=== PATIENT | female | born 1955 | race Caucasian/White ===

== ENCOUNTER 2020-12-02 09:48 | Emergency (ER) | payer MEDICARE, SELFPAY ==
--- NOTE | ~2020-12-02 | XR_ITS ---
EXAMINATION: XR chest 2V EXAM DATE: 12/02/2020 10:10 INDICATION: Cough, fever/ covid positive 5x days ago/non smoker. TECHNIQUE: Frontal and lateral projections of the chest obtained and reviewed. There is no prior omar dy for comparison. FINDINGS: The lungs are hyperinflated which can be seen with chronic obstructive pulmonary disease ( a clinical diagnosis of functional impairment), but is not diagnostic of it. The lungs are clear. Th ere are no pleural effusions. The cardiomediastinal silhouette is within normal limits. There is no pneumothorax suspected. The bones and soft tissues are unremarkable. IMPRESSION: 1. No acute cardiopulmonary findings. 2. Hyperinflation. Reviewed, dictated and finalized at location B.
[2020-12-02 10:01] VITALS: BP 123/74; PULSE 117; RESP 20; TEMP 37.7; O2SAT 97
--- NOTE | 2020-12-02 10:14 | ED.URI ---
HPI - URI/Sore Throat General Chief Complaint: Upper Respiratory Infection Stated Complaint: cough/fever Source: patient and RN notes reviewed Mode of arrival: ambulatory History of Present Illness HPI Narrative: This is a 65-year-old female that presented to urgent care with complaints of shortness of breath, congestion, headache, fatigue and a fever. According to patient she felt bad on Saturday get tested on Saturday and received report that she was positive for Covid on Saturday. she did take [id number] medication to treat her symptoms. Patient daughter is a nurse who took her oxygen level at home and reportedly to be between 90 to 96%. Patient family instructed her to come to urgent care to rule out pneumonia. She also noted that her temperature was between 101 and 103. The patient denies CP, palpitation, extremity numbness, lightheadedness, dizziness, constipation, diarrhea, chills, or fever. Patient also reports nausea with a decreased appetite and a cough. We will prescribe her Zofran instructed her to eat bland soft foods or have a liquid diet until she is able to tolerate her meals MD elicited complaint: fever, cough, rhinorrhea and nasal congestion Related Data Home Medications Medication Instructions Recorded Confirmed hydroxychloroquine 200 PO BID 12/02/20 leflunomide 20 mg PO DAILY 12/02/20 12/02/20 Allergies Allergy/AdvReac Type Severity Reaction Status Date / Time No Known Allergies Allergy Mild Verified 12/02/20 10:11 Review of Systems Review of Systems: A 14 organ system Review of Systems was performed and pertinent positives included in the HPI, otherwise remaining ROS is negative. [facility] Family History Family History Sibling Family history of lung cancer Family history of malignant neoplasm of brain Social History Social History Smoking status: Never smoker Second hand tobacco smoke exposure: No Alcohol intake: current Exam Narrative: GENERAL: Fatigue appearance, in no apparent distress. HEAD: normocephalic, atraumatic. EYES: PERRL. Sclera clear/white. Vision is grossly intact. EARS: External ears normal, auditory canals clear and without drainage, TMs normal without perforation. Hearing grossly intact. NOSE: External nose normal with no obvious nasal discharge, nares without redness, no rhinorrhea. THROAT: Mucous membranes moist, posterior pharynx clear. NECK: Neck supple, non-tender without lymphadenopathy, masses or thyromegaly. CARDIOVASCULAR: Regular rate and rhythm without murmurs, gallops, or rubs. RESPIRATORY: Clear to auscultation. Breath sounds equal bilaterally. No wheezes, rales, or rhonchi. GASTROINTESTINAL: Abdomen soft, non-tender, nondistended. Bowel sounds are active. No hepato-splenomegaly, or palpable masses. No guarding. SKIN: warm, intact with no suspicious lesions or rash, good texture and turgor. NEURO: awake, alert, and oriented to person, place and time. There were no obvious focal neurologic abnormalities. Steady gait EXTREMITIES: Normal range of motion. No edema. No calf tenderness. Negative Homans sign bilaterally. BACK: Nontender without deformity or crepitance. No flank tenderness. Course Course Emergency Course: Patient will be discharged with albuterol, dexamethasone Vital Signs Vital signs: Vital Signs Temperature 99.9 F H 12/02/20 10:01 Pulse Rate 117 H 12/02/20 10:01 Respiratory Rate 12/02/20 10:01 Blood Pressure 123/74 12/02/20 10:01 Pulse Oximetry 97 12/02/20 10:01 Temperature 99.9 F H 12/02/20 10:01 Pulse Rate 117 H 12/02/20 10:01 Respiratory Rate 12/02/20 10:01 Blood Pressure 123/74 12/02/20 10:01 Pulse Oximetry 97 12/02/20 10:01 Discharge Plan Discharge Clinical Impression: COVID-19 Patient Disposition: Home, Self-Care Condition: Stable Instructions: Antibiotic Form, CO
== END 2020-12-02 10:40 | disposition home or self-care (01) ==
PROVIDERS: Emergency Provider Nurse Practitioner
DX: U07.1 COVID-19 (principal)
CPT/HCPCS: 71046; 99213; G0463

== ENCOUNTER 2020-12-04 15:04 | Emergency (ER) | payer MEDICARE, SELFPAY ==
[2020-12-04] VITALS (11 sets, daily range): BP systolic 112–130; BP diastolic 62–88; PULSE 75–96; RESP 17–22; TEMP 36.6; O2SAT 94–96
--- NOTE | ~2020-12-04 | XR_ITS ---
EXAMINATION: XR chest 1V portable DATE: 12/04/2020 15:56 INDICATION: Weakness. Shortness of breath. COVID-19 positive. TECHNIQUE: A single frontal view of the chest was obtained. COMPARISON: Chest 2 views 12/02/2020 FINDINGS: There is mild scarring at the lung apices. There are interstitial opacities in the mid and lower lung zones. No pleural effusion or pneumothorax. The heart size is normal. IMPRESSION: 1. Worsened interstitial opacities in the mid and lower lung zones, consistent with COVID-19 pneumoni a versus mild pulmonary edema. Reviewed, dictated and finalized at location A. IMPRESSION: 1. Worsened interstitial opacities in the mid and lower lung zones, consistent with COVID-19 pneumonia versus mild pulmonary edema.
--- NOTE | ~2020-12-04 | CT_ITS ---
EXAMINATION: CTA chest PE protocol DATE: 12/04/2020 17:05 INDICATION: COVID-19 pneumonia. Weakness. TECHNIQUE: Computed tomography angiography (CTA) of the chest was performed with 100 mL Omnipaque-350 intravenous contrast timed to evaluate the pulmonary arteries. Coronal maximum intensity projection 3D-reconstructions were created by the technologist. Automated exposure control and iterative reconst ruction technique were employed. The dose-length product was 191.34 mGy-cm. COMPARISON: Chest single view 12/04/2020 FINDINGS: There are patchy groundglass opacities and crazy paving involving all lobes. No pleural eff usion. The heart size is normal. No pericardial effusion. There is no pulmonary embolus. There is lum bar dextroscoliosis and severe spondylosis. IMPRESSION: 1. No pulmonary embolus. 2. Diffuse lung disease, consistent with COVID-19 pneumonia. Reviewed, dictated and finalized at location A.
--- NOTE | 2020-12-04 15:42 | ECG_ITS ---
Measurements Intervals [place] Rate: 78 P: 81 FL: 142 QRS: 81 QRSD: 97 T: 79 QT: 395 QTc: 451 Interpretive Statements SINUS RHYTHM ATRIAL PREMATURE COMPLEXES POSSIBLE LEFT ATRIAL ENLARGEMENT LOW QRS VOLTAGE IN PRECORDIAL LEADS BASELINE ARTIFACT- I, II, III, AVR, AVL, AVF, V1-V6 BORDERLINE ECG Electronically Signed On 12-04-2020 20:40:32 CDT by Eddie Devi D.O.
--- NOTE | 2020-12-04 15:56 | ED.GENADULT ---
HPI - General Adult General Chief complaint: Unspecified Stated complaint: covid+, weak Time Seen by Provider: 12/04/20 15:08 Source: patient, RN notes reviewed and old records reviewed Mode of arrival: ambulatory Limitations: no limitations History of Present Illness HPI narrative: This is a 65 year old female with history of Rheumatoid Arthritis who presents for weakness and COVID diagnosis. She developed symptoms of covid 9 days ago. She reports loss of smell, poor appetite, weakness, cough and fever. She was tested for COVID on Saturday, and she was evaluated at [facility] 2 days ago. She was started on albuterol, dexamethason, tessalon perles, and zofran. She has come to ER today because she is concerned she is dehydrated. She reports she had diarrhea first 7 days but that has resolved. She denies nausea, vomiting or abdominal pain. She also denies chest pain or shortness of breath. Her main complaint is that she is really weak. Related Data Home Medications Medication Instructions Recorded Confirmed hydroxychloroquine 200 PO BID 12/02/20 leflunomide 20 mg PO DAILY 12/02/20 12/02/20 Allergies Allergy/AdvReac Type Severity Reaction Status Date / Time No Known Allergies Allergy Mild Verified 12/04/20 15:22 Review of Systems Review of Systems: All systems reviewed & are unremarkable except as noted in HPI and below PMFSH Past Medical History Medical History (Updated 12/05/20 @ 00:00 by Natalya Sharma) Rheumatoid arthritis Family History Family History Sibling Family history of lung cancer Family history of malignant neoplasm of brain Social History Social History Smoking status: Never smoker Second hand tobacco smoke exposure: No Alcohol intake: current Exam Narrative: GENERAL: Well-appearing, well-nourished, and in no acute distress. HEAD: Normocephalic, atraumatic EYES: PERRLA and EOMI, conjunctiva clear without discharge THROAT:Mucous membranes moist, Oropharynx normal without erythema, exudate, peritonsillar swelling or fluctuance NECK: Supple, without lymphadenopathy or mass RESPIRATORY: No respiratory distress, Airway patent, Respirations non-labored,bibasilar crackles heard HEART: Regular rate and rhythm. No murmur heard. Normal peripheral pulses. ABDOMEN: Soft, nontender, nondistended, normal active bowel sounds. No masses. No rebound or guarding, No organomegaly. EXTREMITIES: No edema, normal strength with full range of motion. SKIN: Warm, dry, normal color without rash NEURO: Alert and oriented x3. CN 2-12 grossly intact. No focal deficits. PSYCH: Normal mood and affect. Course Consultations Consultation #1: I discussed with patient about diagnosis of covid pneumonia. She is day 9 . I walked patient around nurses station and she denies shortness of breath with oxygen saturation 94% on room air. She already has steroid, cough medication and albuterol inhaler. She denies any other questions or concerns. Date: 12/04/20 Time: 17:58 Vital Signs Vital signs: Vital Signs Temperature 97.9 F 12/04/20 15:19 Pulse Rate 93 12/04/20 15:19 Respiratory Rate 17 12/04/20 15:19 Blood Pressure 113/65 12/04/20 15:19 Pulse Oximetry 96 12/04/20 15:19 Temperature 97.9 F 12/04/20 15:19 Pulse Rate 81 12/04/20 18:31 Respiratory Rate 18 12/04/20 18:31 Blood Pressure 130/64 12/04/20 18:31 Pulse Oximetry 95 12/04/20 18:31 Medical Decision Making Vital Signs Vital Signs: Vital Signs Temperature 97.9 F 12/04/20 15:19 Pulse Rate 93 12/04/20 15:19 Respiratory Rate 17 12/04/20 15:19 Blood Pressure 113/65 12/04/20 15:19 Pulse Oximetry 96 12/04/20 15:19 Temperature 97.9 F 12/04/20 15:19 Pulse Rate 81 12/04/20 18:31 Respiratory Rate 18 12/04/20 18:31 Blood Pressure 130/64 12/04/20 18:31
--- NOTE | 2020-12-04 15:58 | PCRCNOTE ---
HAD TO WAIT FOR NURSING TO FINISH WITH PT. AND FOR PT. TO GIVE A URINE SAMPLE BEFORE DRAWING ABG.
[2020-12-04 16:15] LABS: Basophils Percent Auto 0.2 % (0.2-1.2); Hematocrit 39.5 % (37.0-47.0); Hemoglobin 12.8 g/dL (12.0-15.0); Immature Granulocyte Absolute 0.02 K/mm3 (0.00-0.031); Immature Granulocyte Percent A 0.4 % (0-0.5); Immature Platelet Fraction Pct 8.2 % (0.9-11.2); Lymphocytes Absolute Auto 0.62 K/mm3 (0.9-3.2); Lymphocytes Percent Auto 11.9 % (18.3-44.2); Mean Corpuscular HGB Conc 32.4 g/dl (32-36); Mean Corpuscular Hemoglobin 29.7 pg (26-34); Mean Corpuscular Volume 91.6 fl (80-100); Monocytes Absolute Auto 0.4 K/mm3 (0.1-0.6); Monocytes Percent Auto 8.4 % (2.6-8.5); Neutrophils Absolute Auto 4.1 K/mm3 (1.3-6.7); Neutrophils Percent Auto 79.1 % (45.5-73.1); Platelet Count Result 100 k/mm3 (150-375); Red Blood Count 4.31 M/mm3 (4.2-5.4); Red Cell Distribution Width 12.8 % (11.5-14.5); White Blood Count 5.2 K/mm3 (4.5-10.0)
[2020-12-04 16:23] LABS: Base Excess ABG -1.3 mEq/l (+/-2.0); Carboxyhemoglobin 0.3 % THb (0-2.0); Fractional Inspired Oxygen 21 %; HCO3 ABG 22.4 mEq/l (22.0-26.0); Methemoglobin ABG 0.1 %THb (0-1.5); Oxygen Content ABG 18.1 %vol (16.0-22.0); Oxygen Saturation ABG 98.7 % (95.0-100.0); Oxyhemoglobin 97.4 % THb (90.0-100.0); PCO2 ABG 34.4 mmHg (35.0-45.0); PO2 ABG 129.7 mmHg (80.0-100.0); PO2 FiO2 Ratio Arterial Blood 6.18 %; Reduced Hemoglobin 2.2 %THb (0-5.0); Total Hemoglobin 13.1 g/dL (12.0-18.0); pH ABG 7.431 (7.350-7.450)
[2020-12-04 16:24] LABS: D Dimer 0.58 ug/mL (<0.48)
[2020-12-04 16:29] LABS: Alanine Aminotransferase 26 U/L (4-35); Albumin Level 4.1 g/dL (3.5-5.1); Alkaline Phosphatase 89 U/L (38-126); Anion Gap 7 mmol/L (8-16); Aspartate Amino Transferase 49 U/L (14-36); Bilirubin,Total 0.4 mg/dL (0.2-1.3); Blood Urea Nitrogen 15 mg/dL (7-17); CRP 2.8 mg/dL (<1.0); Calcium 8.5 mg/dL (8.4-10.2); Carbon Dioxide 25 mmol/L (22-30); Chloride 102 mmol/L (98-107); Estimated CRCL calculation 62 ml/min; Estimated Glomerular Filt Rate > 60; Glucose 147 mg/dL (65-110); Potassium 3.7 mmol/L (3.4-5.0); Sodium 134 mmol/L (137-145)
[2020-12-04 16:29] LABS: Device ROOM AIR; Site Drawn LEFT BRACHIAL
[2020-12-04 16:40] LABS: Magnesium 2.1 mg/dL (1.6-2.3); Troponin I < 0.012 ng/mL (0.000-0.034)
[2020-12-04 16:48] LABS: Add Urine Microscopic? YES; Appearance Urine Clear (Clear); Bacteria Urine Trace /hpf; Bilirubin Urine Negative (Negative); Blood Urine Negative (Negative); Color Urine Yellow (Yellow); Glucose Urine UA Negative (Negative); Ketones Urine Negative (Negative); Leukocyte Esterase Ur Negative LEU/UL (Negative); Mucus Urine Rare /lpf; Nitrate Urine Negative (Negative); Protein Urine 1+ mg/dL (Negative); RBC Urine 0-2 /hpf (0-2); Specific Grav Ur 1.014 (1.001-1.035); Squamous Epithelial Cell Urine Occasional /hpf (Few); Urobilinogen Urine Negative mg/dL (<2.0); WBC Urine 0-3 /hpf
== END 2020-12-04 18:33 | disposition home or self-care (01) ==
PROVIDERS: Emergency Provider General Practice
DX: U07.1 COVID-19 (principal); J12.82 Pneumonia due to coronavirus disease 2019; M06.9 Rheumatoid arthritis, unspecified; I49.1 Atrial premature depolarization; R94.31 Abnormal electrocardiogram [ECG] [EKG]
CPT/HCPCS: 36415; 36600; 71045; 71275; 80053; 81001; 82375; 82805; 83050; 83735; 84484; 85025; 85055; 85380; 86140; 93005; 99284; Q9967

== ENCOUNTER → 2021-02-24 10:24 | Outpatient (CLI) | payer MEDICARE, SELFPAY ==
--- NOTE | ~2021-02-24 | MM_ITS ---
EXAMINATION: MM screening debora BI w melissa HISTORY: Screening TECHNIQUE: Craniocaudal and mediolateral oblique 3-D tomosynthesis images were obtained and synthetic 2-D images were generated. CAD analysis was submitted and interpreted. COMPARISON: 04/04/2018 bilateral screening mammogram 10/10/2015 bilateral diagnostic mammography and bilateral complete breast ultrasound examination 09/21/2015 bilateral screening mammogram examinations BREAST PARENCHYMAL COMPOSITION: The breasts are heterogeneously dense, which may obscure small masses . FINDINGS: There are some indeterminate microcalcifications in the inner left breast. Diagnostic left mammogram with magnification views is recommended. Otherwise there is no evidence of suspicious mass, calcification, or architectural distortion to sugg est malignancy in either breast. There has been no other suspicious interval change. IMPRESSION: 1. Indeterminate left microcalcifications 2. Diagnostic left mammogram with magnification views is recommended BI-RADS Category 0: Incomplete: Needs additional imaging evaluation. Reviewed, dictated and finalized at location A. ASSISTANT
== END ==
PROVIDERS: PCP Family Medicine; Visit Provider Student in an Organized Health Care Education/Training Program
DX: Z12.31 Encounter for screening mammogram for malignant neoplasm of breast (principal); R92.8 Other abnormal and inconclusive findings on diagnostic imaging of breast
CPT/HCPCS: 77063; 77067

== ENCOUNTER → 2021-03-15 13:18 | Outpatient (CLI) | payer MEDICARE, SELFPAY ==
--- NOTE | ~2021-03-15 | DEXA_ITS ---
Bone Density Report Name: ANNIE BERNABE Age: 65 Sex: Female Ethnicity: White Date of : 1955 Indication: osteopenia; height loss; hysterectomy; rheumatoid arthritis; Referring Provider: Elliot, Rachid Walker Study: Bone densitometry was performed. Exam Date: March 15, 2021 Accession number: [id number] Bone Density: Region BMD T-score Z-score Classification AP Spine (L1-L4) 0.850 -1.8 0.0 Osteopenia Femoral Neck (Left) 0.794 -0.5 1.1 Normal Total Hip (Left) 0.943 0.0 1.3 Normal Femoral Neck (Right) 0.752 -0.9 0.7 Normal Total Hip (Right) 0.871 -0.6 0.7 Normal Total Hip Mean 0.907 -0.3 1.0 Normal World Health Organization criteria for BMD impression classify patients as: Normal (T-score at or above -1.0), Osteopenia (T-score between -1.0 and -2.5), or Osteoporosis (T-score at or below -2.5). 10-year Fracture Risk(1): Major Osteoporotic Fracture 10.0% Hip Fracture 0.8% Reported Risk Factors: [place] (), Neck BMD=0.752, BMI=23.7, rheumatoid arthritis (1) FRAX(R) Version 3.08. Fracture probability calculated for an untreated patient. Fracture probability may be lower if the patient has received treatment. Previous Exams: Region Exam Age BMD T-score BMD Change BMD Change Date g/cm2 vs Baseline vs Previous AP Spine(L1-L4) 03/15/2021 65 0.850 -1.8 -0.117* -0.004 11/01/2014 59 0.855 -1.7 -0.113* -0.040* 05/26/2012 56 0.895 -1.4 -0.072* -0.037* 01/23/2010 54 0.932 -1.0 -0.035* -0.035* 12/18/2006 51 0.967 -0.7 Total Hip(Left) 03/15/2021 65 0.943 0.0 0.017 0.035* 11/01/2014 59 0.908 -0.3 -0.018 -0.042* 05/26/2012 56 0.950 0.1 0.024 0.017 01/23/2010 54 0.933 -0.1 0.007 0.007 12/18/2006 51 0.926 -0.1 Total Hip(Right) 03/15/2021 65 0.871 -0.6 -0.024 0.016 11/01/2014 59 0.855 -0.7 -0.040* -0.037* 05/26/2012 56 0.892 -0.4 -0.003 0.014 01/23/2010 54 0.877 -0.5 -0.018 -0.018 12/18/2006 51 0.895 -0.4 *Denotes significance at 95% confidence level, LSC for AP Spine = 0.022 g/cm2, LSC for Total Hip = 0.027 g/cm2 Clinical Information Provided by Patient: Has rheumatoid arthritis Has used the following medications: Vitamin D Has the following medical conditions: Hysterectomy Patient maximum height was 64 [place]
== END ==
PROVIDERS: PCP Family Medicine; Visit Provider Family Medicine
DX: Z78.0 Asymptomatic menopausal state (principal); M85.88 Other specified disorders of bone density and structure, other site
CPT/HCPCS: 77080

== ENCOUNTER → 2021-03-20 08:43 | Outpatient (CLI) | payer MEDICARE, SELFPAY ==
--- NOTE | ~2021-03-20 | MM_ITS ---
EXAMINATION: MM diagnostic mammo unilat LT HISTORY: Indeterminate left breast calcifications on screening mammogram TECHNIQUE: Additional views of the left breast were performed. CAD analysis was submitted and interpr eted. COMPARISON: 02/24/2021, 04/04/2018,10/10/2015, 09/21/2015 FINDINGS: Grouped coarse heterogeneous calcifications in the middle third of the slightly inner breas t at the 9:00 location 5 cm from the nipple appears stable when compared to prior magnification views . No suspicious mass or architectural distortion are identified. IMPRESSION: 1. No mammographic evidence of malignancy. 2. Recommend routine screening mammography in one year. BI-RADS Category 2: Benign finding(s). Reviewed, dictated and finalized at location A. CE MANAGER
== END ==
PROVIDERS: Visit Provider Student in an Organized Health Care Education/Training Program
DX: R92.8 Other abnormal and inconclusive findings on diagnostic imaging of breast (principal)
CPT/HCPCS: 77065

== ENCOUNTER 2024-03-12 10:50 | Outpatient (CLI) | payer MEDICARE, SELFPAY ==
--- NOTE | ~2024-03-12 | XR_ITS ---
EXAMINATION: XR sacroiliac joints min 3V DATE: 03/12/2024 11:07 INDICATION: Sacroiliac joint pain. TECHNIQUE: 3 views of the sacroiliac joints were obtained. COMPARISON: None. FINDINGS: There is lumbar levocurvature and moderate spondylosis. No fracture. There is mild osteoart hritis of the sacroiliac joints. IMPRESSION: 1. Mild osteoarthritis of the sacroiliac joints. No evidence of inflammatory arthropathy. Reviewed, dictated and finalized at location A. CLE RETURN ASSOCIATE IMPRESSION: 1. Mild osteoarthritis of the sacroiliac joints. No evidence of inflammatory ar thropathy.
== END 2024-03-12 10:51 | disposition home or self-care (01) ==
PROVIDERS: PCP Family Medicine; Visit Provider Nurse Practitioner
DX: M53.3 Sacrococcygeal disorders, not elsewhere classified (principal)
CPT/HCPCS: 72202

== ENCOUNTER 2024-08-25 13:22 | Outpatient (CLI) | payer MEDICARE, SELFPAY ==
--- NOTE | ~2024-08-25 | DEXA_ITS ---
Bone Density Report Name: ANNIE AYON Age: 69 Sex: Female Ethnicity: White Date of : 1955 Indication: postmenopausal; screening for osteoporosis; height loss; hysterectomy; rheumatoid arthritis; Referring Provider: CHRISTINE MCKINNEY Study: Bone densitometry was performed. Exam Date: August 25, 2024 Accession number: [id number] Bone Density: Region BMD T-score Z-score Classification AP Spine(L1-L4) 0.890 -1.4 0.6 Osteopenia Femoral Neck (Left) 0.760 -0.8 0.9 Normal Total Hip (Left) 0.891 -0.4 1.0 Normal Femoral Neck (Right) 0.744 -0.9 0.8 Normal Total Hip (Right) 0.846 -0.8 0.7 Normal Total Hip Mean 0.869 -0.6 0.9 Normal World Health Organization criteria for BMD impression classify patients as: Normal (T-score at or above -1.0), Osteopenia (T-score between -1.0 and -2.5), or Osteoporosis (T-score at or below -2.5). 10-year Fracture Risk(1): Major Osteoporotic Fracture 11% Hip Fracture 1.1% Reported Risk Factors: [place] (), Neck BMD=0.744, BMI=24.9, rheumatoid arthritis (1) FRAX(R) Version 3.08. Fracture probability calculated for an untreated patient. Fracture probability may be lower if the patient has received treatment. Clinical Information Provided by Patient: Has rheumatoid arthritis Has used the following medications: Vitamin D Has the following medical conditions: Hysterectomy Patient maximum height was 64 Menopause Age: 42 Drinks caffeinated beverages Onset of menses at age 15 Number of children 2 Impression: The patient has low bone mass, based on the Total Spine T-score. The patient has an estimated ten-year risk of hip fracture of 1.1% and an estimated ten-year risk of major fracture of 11%, based on the WHO FRAX algorithm. Discussion: BONE DENSITY IS LOW AT ONE OR MORE SKELETAL SITES. This patient's lowest T-score is low at one or more skeletal sites. It meets the World Health Organization's (WHO) criteria for ?low bone mass? (T-score between -1.0 and -2.5). The patient's 10-year risk of fracture as calculated by FRAX is less than the threshold where pharmacological therapy is recommended by the National Osteoporosis Foundation (NOF). However, all treatment decisions require clinical judgment and consideration of individual patient factors, including patient preferences, comorbidities, previous drug use, risk factors not captured in the FRAX model (e.g., frailty, falls, vitamin D deficiency, increased bone turnover, interval significant decline in bone density) and possible under or overestimation of fracture risk by FRAX. The patient should follow a healthful lifestyle (good nutrition with adequate calcium and vitamin D, and appropriate weight-bearing exercise). Follow-Up: Consider repeating this study in 2 to 3 years to reassess this patient's status, or sooner if there is some new clinical indication. Reported by: GARTH on 08/25/2024 1:59:00 PM. Reviewed, dictated and finalized at location A.
--- OUTSIDE RECORDS SUMMARY | 2024-08-25 13:25 | XMS_ITS | Clinical Summary ---
Author Organization [employer] Address [address] 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
--- OUTSIDE RECORDS SUMMARY | 2024-08-25 13:25 | XMS_ITS | Data Portability ---
Author Organization [facility] Address [address] [place] [address] Assessment No assessment recorded. Plan of Treatment Reminders Order Date Submit Date Provider Last Modified By Organization Details Last Modified Time Details Appointments ANY 15 2024 10:00A M Rachid Zarate MD Not available Not available Not available Lab lipid panel, serum 2023 024 [facility], [address], [address], [place], [address], 01/31/2024 09:19:40 CBC 2023 024 [facility], [address], [place], [address], 01/31/2024 09:19:43 CMP, serum or plasma 2023 024 [facility], [address], [place], [address], 01/31/2024 09:19:42 influenza virus A + B + SARS-CoV- 2 (COVID19) Ag panel, rapid IA, upper respirato ry specimen 2022 023 [email or web address] In-Office Order, Internal Use Only DO Not Attach Compendium DO Not Attach Compendium, Do Not Delete/merge, [id number] 03/27/2023 12:57:52 Referral None recorded. Procedures IV infusion, hydration , 31-60 min (PROC) - #22 angiocath rt arm started at 1145am and hung 500 ml normal saline, finished at 1215pm, sl better, no urge to void, 500cc hung at 1215 and finished at 1250, and last 500cc hung at 1250. color better, feels better-no void. finished at 1330, pt feeling better and voided. 2022 023 [email or web address] Not available 03/28/2023 09:46:49 Surgeries None recorded. Imaging XR, chest, 2 view 2022 023 [facility], [address] [facility], [place], [address], 03/27/2023 15:08:49 Medication Orders triamcino lone acetonide 40 mg/mL suspensio n for injection 2024 025 [email or web address] [facility] [address] [place], [address], 07/06/2024 11:11:43 ceftriaxo ne 1 gram solution for injection 2023 024 [facility] [address] [place], [address], 01/28/2024 08:12:47 triamcino lone acetonide 80 mg/mL suspensio n for injection 2023 024 [facility] [address] [place], [address], 01/28/2024 08:13:07 sodium chloride 0.9 % intraveno us solution 2022 023 cheuerma Not available 03/28/2023 09:49:50 sodium chloride 0.9 % intraveno us solution 2022 023 cheuerma Not available 03/28/2023 09:49:50 sodium chloride 0.9 % intraveno us solution 2022 023 cheuerma Not available 03/28/2023 09:49:50 Medrol (Sergei) 4 mg tablets in a dose pack 2022 [facility] [address] [place], [address], 01/28/2024 08:13:03 ceftriaxo ne 1 gram solution for injection 2022 023 [facility] [address] [place], [address], 01/28/2024 08:12:47 triamcino lone acetonide 40 mg/mL suspensio n for injection 2022 023 [facility] [address] [place], [address], 01/28/2024 08:13:12 cefuroxim e axetil 250 mg tablet 2022 024 [facility] [address] [place], [address], 01/28/2024 08:12:59 albuterol sulfate HFA 90 mcg/actua tion aerosol inhaler 2022 [facility]23 [email or web address] [address] [place], [address], 03/27/2023 14:45:49 Patient TargetsNo targets recorded. Patient InstructionsNo instructions recorded. Reason for Referral None Reported. Results Created Date Observation Date Name Description Value Unit Range Abnormal Flag Note LastModifiedBy Organization Detail LastModifiedTime 03/27/2003/27/2023 influ love virus A + B + SARS- CoV-2 (COVI D19) Ag panel , rapid IA, upper respi rator y speci men Flu A negati ve Not Available In-Office Order Internal Use Only DO Not Attach Compendium DO Not Attach Compendium, Do Not Delete/merge, [id number] 03/27/2023 12:07:02 03/27/2003/27/2023 influ love virus A + B + SARS- CoV-2 (COVI D19) Ag panel , rapid IA, upper respi rator y speci men Flu B negati ve Not Available In-Office Order Internal Use Only DO Not Attach Compendium DO Not Attach Compendium, Do Not Delete/merge, [id number] 03/27/2023 12:07:02 03/27/20 23 03/27/2023 influ love virus A + B + SARS- CoV-2 (COVI D19) Ag panel , rapid IA, upper respi rator y speci men Rapid SARS CoV 2 Ag, QL IA, respiratory specimen negati ve Not Available In-Office Order Internal Use Only DO Not Attach Compendium DO Not Attach Compendium, Do Not Delete/merge, [id number] 03/27/2023 12:07:02 01/30/20 24 01/31/2024 LIPID PANEL , STAND GINNY cholesterol, total 209 mg/dL <200 high Not Available [address], [address], 01/31/2024 09:19:40 01/30/20 24 01/31/2024 LIPID PANEL , STAND GINNY HDL cholesterol 51 mg/dL > or = 50 normal Not Available [address] [address] [place], [address], 01/31/2024 09:19:40 01/30/20 24 01/31/2024 LIPID PANEL , STAND GINNY triglyceride s 116 mg/dL <150 normal Not Available [address] [place], [address], 01/31/2024 09:19:40 01/30/20 24 01/31/2024 LIPID PANEL , STAND GINNY LDL-choleste rol 136 mg/dL _(cierra c) high Refer ence range : <100 Annamaria able range <100 mg/dL for prima ry preve ntion ; <70 mg/dL for patie nts with CHD or diabe tic patie nts with > or = 2 CHD risk facto rs. LDL-C is now calcu lated using the [facility]-Hop shanique dill n, which is a valid ated novel metho d provi daniel hercules r accur acy than the Fried cristo equat ion in the estim ation of LDL-C . Rosi n SS et al. KAREN. 2013; 310(7 9): 2061- 2068 (http ://ed ucati on.Flossonic Ju jacomeAmerican Pathology Partners. com/f aq/FA Q164) Not Available [address], [address], 01/31/2024 09:19:40 01/30/2001/31/2024 LIPID PANEL , STAND GINNY chol/HDLC ratio 4.1 (calc ) <5.0 normal Not Available [address], [address], 01/31/2024 09:19:40 01/30/2001/31/2024 LIPID PANEL , STAND GINNY non HDL cholesterol 158 mg/dL _(cierra c) <130 high For patie nts with diabe mona plus 1 major ASCVD risk facto r, treat ing to a non-H DL-C goal of <100 mg/dL (LDL- C of <70 mg/dL ) is consi dered a thera semaj c optio n. Not Available [address], [address], 01/31/2024 09:19:40 01/30/20 24 01/31/2024 COMPR EHENS [place] METAB OLIC PANEL glucose 80 mg/dL 65-99 normal Fasti ng refer ence inter hilary Not Available [address], [address], 01/31/2024 09:19:42 01/30/2001/31/2024 COMPR EHENS KENT[place] METAB OLIC PANEL urea nitrogen (BUN) 14 mg/dL 7-25 normal Not Available [facility] [address], [address], 01/31/2024 09:19:42 01/30/20 24 01/31/2024 COMPR EHENS [place] METAB OLIC PANEL creatinine 0.58 mg/dL 0.50-1 .05 normal Not Available [address], [address], 01/31/2024 09:19:42 01/30/20 24 01/31/2024 COMPR EHENS [place] METAB OLIC PANEL eGFR 99 mL/mi n/1.7 3m2 > or = 60 normal Not Available [address], [address], 01/31/2024 09:19:42 01/30/20 24 01/31/2024 COMPR EHENS [place] METAB OLIC PANEL BUN/creatini ne ratio SEE NOTE: (calc ) 6-22 Not Repor duncan: BUN and Creat inine are withi n refer ence range . Not Available [address], [address], 01/31/2024 09:19:42 01/30/20 24 01/31/2024 COMPR EHENS KENTON METAB OLIC PANEL sodium 141 mmol/ L 135-14 6 normal Not Available [address], [address], 01/31/2024 09:19:42 01/30/20 24 01/31/2024 COMPR EHENS [place]ON METAB OLIC PANEL potassium 3.8 mmol/ L 3.5-5. 3 normal Not Available [address], [address], 01/31/2024 09:19:42 01/30/20 24 01/31/2024 COMPR EHENS K[place]ON METAB OLIC PANEL chloride 104 mmol/ L 98-110 normal Not Available [address], [address], 01/31/2024 09:19:42 01/30/20 24 01/31/2024 COMPR EHENS [place] METAB OLIC PANEL carbon dioxide 29 mmol/ L 20-32 normal Not Available [address], [address], 01/31/2024 09:19:42 01/30/2001/31/2024 COMPR EHENS [place]ON METAB OLIC PANEL calcium 8.8 mg/dL 8.6-10 .4 normal Not Available [address], [address], 01/31/2024 09:19:42 01/30/2001/31/2024 COMPR EHENS K[place]ON METAB OLIC PANEL protein, total 6.1 g/dL 6.1-8. 1 normal Not Available [address], [address], 01/31/2024 09:19:42 01/30/2001/31/2024 COMPR EHENS [place]ON METAB OLIC PANEL albumin 4.1 g/dL 3.6-5. 1 normal Not Available [address], [address], 01/31/2024 09:19:42 01/30/2001/31/2024 COMPR EHENS K[place]ON METAB OLIC PANEL globulin 2.0 g/dL_ (calc ) 1.9-3. 7 normal Not Available [address], [address], 01/31/2024 09:19:42 01/30/2001/31/2024 COMPR EHENS K[place]ON METAB OLIC PANEL albumin/glob ulin ratio 2.1 (calc ) 1.0-2. 5 normal Not Available [address], [address], 01/31/2024 09:19:42 01/30/20 24 01/31/2024 COMPR EHENS KENTON METAB OLIC PANEL bilirubin, total 0.6 mg/dL 0.2-1. 2 normal Not Available [address], [address], 01/31/2024 09:19:42 01/30/20 24 01/31/2024 COMPR EHENS [place] METAB OLIC PANEL alkaline phosphatase 98 U/L 37-153 normal Not Available [address], [address], 01/31/2024 09:19:42 01/30/20 24 01/31/2024 COMPR EHENS K[place] METAB OLIC PANEL AST 21 U/L 10-35 normal Not Available [address], [address], 01/31/2024 09:19:42 01/30/2001/31/2024 COMPR EHENS K[place]ON METAB OLIC PANEL ALT 17 U/L 6-29 normal Not Available [address], [address], 01/31/2024 09:19:42 01/30/2001/31/2024 CBC (H/H, RBC, INDIC ES, WBC, PLT) white blood cell count 4.4 thous and/u L 3.8-10 .8 normal Not Available [address], [address], 01/31/2024 09:19:43 01/30/2001/31/2024 CBC (H/H, RBC, INDIC ES, WBC, PLT) red blood cell count 4.08 bhavani on/uL 3.80-5 .10 normal Not Available [address], [address], 01/31/2024 09:19:43 01/30/2001/31/2024 CBC (H/H, RBC, INDIC ES, WBC, PLT) hemoglobin 12.6 g/dL 11.7-1 5.5 normal Not Available [address], [address], 01/31/2024 09:19:43 01/30/20 24 01/31/2024 CBC (H/H, RBC, INDIC ES, WBC, PLT) hematocrit 38.2 % 35.0-4 5.0 normal Not Available [address], [address], 01/31/2024 09:19:43 01/30/2001/31/2024 CBC (H/H, RBC, INDIC ES, WBC, PLT) MCV 93.6 fL 80.0-1 00.0 normal Not Available [facility] [address], [address], 01/31/2024 09:19:43 01/30/2001/31/2024 CBC (H/H, RBC, INDIC ES, WBC, PLT) MCH 30.9 pg 27.0-3 3.0 normal Not Available [facility] [address], [address], 01/31/2024 09:19:43 01/30/2001/31/2024 CBC (H/H, RBC, INDIC ES, WBC, PLT) MCHC 33.0 g/dL 32.0-3 6.0 normal For adult s, a sligh t decre ase in the calcu lated MCHC value (in the range of 30 to 32 g/dL) is most likel y not clini jerald signi ficjennie t; bill er, it shoul d be inter prete d with cauti on in corre lat n with other red cell rajesh eters and the patie nt's clini cierra condi tion. Not Available [facility] [address] [address] [place], [address], 01/31/2024 09:19:43 01/30/2001/31/2024 CBC (H/H, RBC, INDIC ES, WBC, PLT) RDW 12.3 % 11.0-1 5.0 normal Not Available [facility] [address] [place], [address], 01/31/2024 09:19:43 01/30/2001/31/2024 CBC (H/H, RBC, INDIC ES, WBC, PLT) platelet count 171 thous and/u L 140-40 0 normal Not Available [address], [address], 01/31/2024 09:19:43 01/30/20 24 01/31/2024 CBC (H/H, RBC, INDIC ES, WBC, PLT) MPV 10.6 fL 7.5-12 .5 normal Not Available [facility] [address] [place], [address], 01/31/2024 09:19:43 02/29/20 23 nmens 1d [facility] [address] [place] [address] Myocar dial Perfus ion Imagin g Pat.Na me: HAILEE BEARD Pat.ID : [id number] [facility] 2022 Refer. MD: Elliot Exam Time: 1:22:0 0 PM Study Type:S EB NC HT MUSCLE IMAGE SPECT MULTI Height : 63 in Weight : 142 lb BSA: 1.67 m2 Age: [birth year],67 Y Sex: F Sonogr phr: Clarence Isbell ARRTBell Pat. Stat.: Outpat ient Reason for Study: Chest heavin ess, Shortn ess of breath , Abnorm al EKG, Edema, Fatigu e Histor y / Clinic al:Hyp ertens ion, Family histor y CAD Proced ures: Nuclea r Stress Test with Exerci se Race: W Surger y: Echoca rdiogr am ++++++ ++++++ ++++++ ++++++ ++++++ ++++++ SUMMAR Y: ++++++ ++++++ ++++++ ++++++ ++++++ ++++++ Stress conclu roberto: 1. Clinic ally negati ve. 2. Electr ocardi ograph ically negati ve treadm ill test for ischem ia. 3. Adequa te exerci se capaci ty. 4. Ma Treadm ill Score is 6, which indica mona low risk. 5. Blood pressu re respon se was normal . 6. Scinti graphi c images to follow . Perfus ion conclu roberto: 1. Excell ent study qualit y. No motion correc tion was applie d to images . No attenu ation is noted. Prone imagin g was perfor med. 2. Normal myocar dial perfus ion SPECT imagin g. 3. Normal wall motion with an ejecti on fracti on of 76%. 4. Stress test with myocar dial perfus ion imagin g shows overal l low risk for a cardia c event. ++++++ ++++++ ++++++ ++++++ ++++++ ++++++ FINDIN GS: ++++++ ++++++ ++++++ ++++++ ++++++ ++++++ Protoc ol: The images were proces sed using the standa rd SPECT techni que. A gated study was perfor med on the stress images . Impres roberto: SPECT images demons trate normal perfus ion of normal intens ity. Heart Size: The left ventri philippe is normal . LV Wall Motion : The LVEF is calcul ated to be 76%. Gated SPECT images reveal normal wall motion . Transi ent Ischem ic Dilata tion: The TID is 0.94. There is no eviden ce of Transi ent Ischem ic Dilata tion. ++++++ ++++++ ++++++ ++++++ ++++++ ++++++ STRESS : ++++++ ++++++ ++++++ ++++++ ++++++ ++++++ Baseli ne Vital Signs: ECG: Normal sinus rhythm HR: 87 bmp Rest BP: 175/91 Treadm ill Test Protoc ol: Raymon Stress Test Result s: Max HR: 163 bmp Target HR: 153 bmp % Target : 107 % Max BP: 191/87 Max RPP: 80045 O2 sat: 98 % Sympto ms and Compli cation s: Termin ated: Attain ment of adequa te heart rate, Protoc ol comple duncan, Shortn ess of breath Sympto ms: Shortn ess of breath Stress ECG Interp : Sinus tachyc ardia 2022 04:31 PM Sukhdev verma M.D. [email or web address] [facility] [address] [facility], [place], [address], 02/28/2023 17:45:30 03/27/20 23 xr chest Pa+la t [facility] [address] [place] [address] Examin ation: Chest 2 View Histor y: Cough DATE/T EUGENIA: 2022 1:42 PM Compar ashley: None Techni que: PA and latera l views were obtain ed. Findin gs: Heart size, medias tinal contou rs and pulmon massiel vascul ature are within normal limits . No pulmon massiel consol idatio n, pleura l effusi on or pneumo thorax . No acute osseou s abnorm ality. Mild upper thorac ic scolio sis. Impres roberto: No acute findin gs. Referr ed By: Flor onical ly Signed By: Alessio Cabrales MD on 2022 2:05 PM Interp reted By: Alessio Cabrales MD, 2022 2:04 PM [email or web address] [facility] [address] [facility], [place], [address], 03/27/2023 15:13:36 03/27/20 23 03/27/2023 XR, chest , 2 view No observ ation record ed. [email or web address] [facility] [address] [facility], [place], [address], 03/27/2023 15:13:37 Result Notes None recorded. Problems Name Problem SNOMED Code Status Onset Date Resolution Date Notes Provider Name and Address Organization Details Recorded Time Bunion 655427918 Active 2022 Rachid Zarate MD Attn: Martha bayron,[address] [facility], [place], [address], [place] - [facility] 3 17:27:28 Pain in both feet 2401084091659 9102 Active 2022 Rachid Zarate MD Attn: Martha bayron,[address] [facility], [place], [address], [place] [facility] 3 17:27:28 Rheumatoid arthritis 34489885 Active 2022 Rachid Zarate MD Attn: Martha bayron,[address] [facility], [place], [address], [place] [facility] 3 17:27:30 Dyspnea on exertion 02026998 Active 2022 Rachid Zarate MD Attn: Martha bayron,[address] [facility], [place], [address], [place] [facility] 3 17:27:31 Hypertrigly ceridemia 004534283 Active 2022 Rachid Zarate MD Attn: Birdiecorwin verma,[address] [facility], [place], [address], [place] [facility] 3 12:12:12 Benign essential hypertensio n 1312045 Active 2022 Rachid Zarate MD Attn: Martha bayron,[address] [facility], [place], [address], [place] [facility] 3 12:12:35 Pain of sacroiliac joint 117270095 Active 2024 Rachid Zarate MD Attn: Birdiecorwin verma,[address] [facility], [place], [address], [place] [facility] 5 10:53:26 Problem Notes None recorded. Procedures Surgical History Date Name Laterality Status Provider Name and Address Organization Details Recorded Time hysterectomy completed Renetta charlton [place] - [place] 10/30/2022 15:53:49 Imaging Results None recorded. Procedure Notes None recorded. Medical Equipment None Reported. Allergies No known drug allergies Medications Name Sig Start Date Stop Date Status Note LastModified by Organization Details LastModified Time cefuroxime axetil 250 mg tablet TAKE 1 TABLET BY MOUTH EVERY 12 HOURS FOR 10 DAYS 01/27 completed Not Available Not Available Not Available azithromyci n 250 mg tablet TAKE 2 TABLETS (500 MG) BY ORAL ROUTE ONCE DAILY FOR 1 DAY THEN 1 TABLET (250 MG) BY ORAL ROUTE ONCE DAILY FOR 4 DAYS active Not Available Not Available No t Available meloxicam 15 mg tablet TAKE 1 TABLET BY MOUTH ONCE DAILY NEEDED WITH FOOD FOR PAIN 10/30 completed Not Available Not Available Not Available prednisone 5 mg tablet active Not Available Not Available Not Available amlodipine 5 mg tablet TAKE 1 TABLET BY MOUTH ONCE DAILY active Not Available Not Available No t Available leflunomide 20 mg tablet TAKE 1 TABLET BY MOUTH ONCE DAILY FOR 90 DAYS active Not Available Not Available No t Available ketorolac 0.5 % eye drops INSTILL 1 DROP INTO LEFT EYE TWICE DAILY DIRECTED 10/30 completed Not Available Not Available Not Available ceftriaxone 1 gram solution for injection Take 1 g by injection route for 1 day. 01/27 completed Not Available Not Available Not Available prednisolon e acetate 1 % eye drops,suspe nsion INSTILL 1 DROP THREE TIMES DAILY INTO THE LEFT EYE, TAPER BY ONE DROP A WEEK THEN STOP active Not Available Not Available No t Available triamcinolo ne acetonide 40 mg/mL suspension for injection Take 60 mg by injection route for 1 day. 2024 active Not Available Not Available Not Avai lable fluorometho lone 0.1 % eye drops,suspe nsion SHAKE LIQUID AND INSTILL 1 DROP IN BOTH EYES THREE TIMES DAILY 10/30 completed Not Available Not Available Not Available sodium chloride 0.9 % intravenous solution Inject 500 mL by intraveno us route for 1 day. 2022 active Not Available Not Available Not Avai lable hydroxychlo roquine 200 mg tablet TAKE 1 TABLET BY MOUTH TWICE DAILY active Not Available Not Available No t Available methylpredn isolone 4 mg tablets in a dose pack Take 1 dose pk by oral route. active Not Available Not Available No t Available albuterol sulfate HFA 90 mcg/actuati on aerosol inhaler INHALE 2 PUFFS BY MOUTH EVERY 4 TO 6 HOURS NEEDED active Not Available Not Available No t Available atropine 1 % eye drops INSTILL 1 DROP INTO LEFT EYE ONCE DAILY active Not Available Not Available No t Available moxifloxaci n 0.5 % eye drops INSTILL 1 DROP INTO LEFT EYE 4 TIMES DAILY active Not Available Not Available No t Available ketorolac 0.4 % eye drops INSTILL 1 DROP INTO LEFT EYE THREE TIMES DAILY FOR 4 WEEKS 10/30 completed Not Available Not Available Not Available Fish Oil 1,000 mg (120 mg-180 mg) capsule Take 2 capsules every day by oral route in the morning. active Not Available Not Available No t Available triamcinolo ne acetonide 80 mg/mL suspension for injection Take 80 mg by injection route for 1 day. 01/27 completed Not Available Not Available Not Available Vitals Date Recorded Body height Body temperature Body mass index (BMI) Body weight Oxygen saturation Oxygen saturation in Arterial blood by Pulse oximetry Heart rate Systolic And Diastolic Provider Name and Address Organization Details Last Updated DateTime 4 162.56 cm 97.7 [degF] 23.5 kg/m2 80523.1 5 g 95 % 95 % 70 /min 120/82 mm[Hg] Tammie Guzman MA [facility] 4 11:55:57 Date Recorded Body height Body mass index (BMI) Body weight Oxygen saturation Oxygen saturation in Arterial blood by Pulse oximetry Heart rate Systolic And Diastolic Provider Name and Address Organization Details Last Updated DateTime 5 162.56 cm 24.8 kg/m2 86305.7 5 g 95 % 95 % 74 /min 118/70 mm[Hg] Tammie Guzman MA [facility] 5 10:14:19 Date Recorded Body height Body mass index (BMI) Body weight Oxygen saturation Oxygen saturation in Arterial blood by Pulse oximetry Heart rate Systolic And Diastolic Provider Name and Address Organization Details Last Updated DateTime 4 162.56 cm 24.7 kg/m2 26148.6 5 g 95 % 95 % 81 /min 108/68 mm[Hg] Renetta West MA [facility] 4 12:04:11 Date Recorded Body height Body mass index (BMI) Body weight Oxygen saturation Oxygen saturation in Arterial blood by Pulse oximetry Heart rate Systolic And Diastolic Provider Name and Address Organization Details Last Updated DateTime 4 162.56 cm 24.7 kg/m2 18878.6 5 g 98 % 98 % 82 /min 120/72 mm[Hg] Katia Guzman MA [facility] 4 11:37:52 Date Recorded Body height Body mass index (BMI) Body weight Oxygen saturation Oxygen saturation in Arterial blood by Pulse oximetry Heart rate Systolic And Diastolic Provider Name and Address Organization Details Last Updated DateTime 3 162.56 cm 23.5 kg/m2 75043.1 5 g 96 % 96 % 94 /min 116/72 mm[Hg] Tammie Guzman MA [facility] 3 11:18:40 Social History Question Answer Notes LastModified by [employer] Details LastModified Time Tobacco Smoking Status Never Smoker Renetta West MA [facility], [facility] 10/30/2022 15:54:33 What Was The Date Of Your Most Recent Tobacco Screening? 07/06/2024 [email or web address] Information not available 07/06/2024 Has Tobacco Cessation Counseling Been Provided? No Information not available 10/30/2022 Sex: Female Functional Status Question Answer Note LastModified by [employer] Details LastModified Time Do you use any illicit or recreational drugs? No Information not available 10/30/2022 Do you or have you ever used any other forms of tobacco or nicotine? No Information not available 10/30/2022 What is your level of alcohol consumption? Occasional Information not available 10/30/2022 Mental Status None recorded. Family History Relationship Description Onset Age of this Age Resolved Age Notes LastModified by Organization Details LastModified Time Mother Heart disease [email or web address] Not available 2022 15:54:47 Mother Hypertensive disorder cheuerma Not available 2022 15:55:03 Mother Coronary arterioscler osis [email or web address] Not available 2023 11:51:46 Brother Malignant neoplasm of lung cheuerma Not available 2022 15:56:02 Medical History Condition Response Coronary Artery Disease N Other N Atrial Fibrillation N High Blood Pressure Y Depression N COPD N Blood Clots N Anxiety Disorder N Muscle, Joint, or Bone Problems Y Acid Reflux (GERD) N Cancer N Stroke N ADHD N High Cholesterol N Liver Disease N Schizophrenia N Headaches N Thyroid Problems N Kidney or Bladder Problems N GI Problems N Eating Disorder N Skin Problems N Anemia N Heart Attack ([place]) N Diabetes N Seizures/Epilepsy N Asthma N Allergies N Substance Abuse N Hepatitis N Heart Failure N Osteoporosis N Gynecological HistoryNo gynecological history recorded. Obstetrics History GPAL:G 0 P 0 0 0 0 Immunizations Vaccine Type Date Status Note Provider Nam e and Address Organization Details Recorded Time Tdap 12/17/2014 completed Renetta West MA [facility], [place] - [place] 07/29/2023 12:02:54 Past Encounters Encounter ID Performer Location Encounter Start Date Encounter Closed Date Diagnosis/Indication Diagnosis SNOMED-CT Code Diagnosis ICD10 Code Diagnosis Note [id number] Rachid Zarate MD [facility] [address] [facility] [address] [place] [address] 10/30/2022 15:48:18 11/06/2022 12:05:00 Dyspnea on exertion 81750329 R06.09 condtino chroinc and getting worse [facility] Rheumatoid arthritis 698 49526 M06.9 conditoin chroinc and under control follow with dr hathaway Pain in both feet 427057 4216 5723176 M79.671 conditon chroinc and at goal contineu the veronicarosyn Shady [id number] M21.61 9 conditon chroinc and not at goal cotinue hte leflunomid e. Impacted c erumen in left ear [id number] 267049 H61.22 conditoin acute clean left ear. the left external auditory canal is irrigated iwth nomral saline nad currette is used to remove the cerumen bolus intact [id number] Rachid Zarate MD [facility] [address] [facility] [address] [place] [address] 01/28/2023 11:47:17 01/29/2023 11:57:33 Cholesterol screening [id number] Z13.220 order lipid panel send to dr matt Caruso [id number] M21.61 9 conditon chroinc and not at goal cotinue hte leflunomid e. Dyspnea on exertion 6084 5006 R06.09 condtino chroinc and has been evaluated continue with dr gutierrez. Pain in both feet 451982 2992 4846371 M79.671 conditon chroinc and at goal contineu the naprosyn Rheumatoid arthritis 698 14216 M06.9 conditoin chroinc and under control follow with dr hathaway [id number] Rachid Zarate MD [facility] [address] [facility] [address] [place] [address] 03/27/2023 11:01:19 03/28/2023 11:55:42 Acute bronchitis [id number] J20.9 conditoin acute kenalog 80 mg, rocephin, ceftin, medrol, albuterol inhaler, order cxr at [facility] Viral syndrome [id number] B34.9 continue the fluid at home Mild dehydration 2223752 119 108 E86.0 conditon acute 1 liter of normal saline Bunion 660051076 M21.61 9 conditon chroinc and not at goal cotinue hte leflunomid e. Pain in both feet 518651 2583 8373263 M79.671 conditon chroinc and [facility] Rheumatoid arthritis 698 61381 M06.9 conditoin chroinc and under control follow with dr hathaway Hypertriglyceridemia 302 472257 E78.1 conditoin chronic and at goal continue the fish oil Benign ess ential hypertension 2932688 I10 conditoin chroinc and at goal continue the norvasc [id number] Rachid Zarate MD [facility] [address] [facility] [address] [place] [address] 04/03/2023 11:18:55 04/04/2023 14:28:19 Acute bronchitis [id number] J20.9 conditoin acute kenalog 80 mg, rocephin, Acute sinusitis 94851334 J01.90 condition acute rocephin, kenalog 80 mg Benign ess ential hypertension 2056802 I10 conditoin chroinc and at goal continue the norvasc Hypertriglyceridemia 302 345600 E78.1 conditoin chronic and at goal continue the fish oil Rheumatoid arthritis 698 43885 M06.9 conditoin chroinc and under control follow with dr mag Caruso [id number] M21.61 9 conditon chroinc and not at goal cotinue hte leflunomid e. [id number] Rachid Zarate MD [facility] [address] [facility] [address] [place] [address] 07/29/2023 11:31:09 07/30/2023 11:50:12 Benign essential hypertension 4546640 I10 conditoin chroinc and at goal continue the norvasc my rx Hypertriglyceridemia 302 004112 E78.1 conditoin chronic and at goal continue the fish oil my rx Rheumatoid arthritis 698 46309 M06.9 conditoin chroinc and under control follow with dr mag Caruso [id number] M21.61 9 conditon chroinc and not at goal cotinue hte leflunomid e. Dyspnea on exertion 6084 5006 R06.09 condtino chroinc and has been evaluated continue with dr gutierrez. [id number] Rachid Zarate MD [facility] [place] [address] [facility] [address] [place] [address] 01/28/2024 11:20:26 01/29/2024 10:34:47 Pain in right sacroiliac joint [id number] 6293196 M53.3 conditon acute start hte biofreese Benign ess ential hypertension 1573510 I10 conditoin chroinc and at goal continue the norvasc my rx order cbc, cmp Hypertriglyceridemia 302 471523 E78.1 conditoin chronic and at goal continue the fish oil my rx order lipid panel Shady [id number] M21.61 9 conditon chroinc and not at goal cotinue hte leflunomid e. Rheumatoid arthritis 698 20838 M06.9 conditoin chroinc and under control follow with dr hathaway [id number] Rachid Zarate MD [facility] [place] [address] [facility] [address] [place] [address] 07/06/2024 10:03:26 07/07/2024 13:28:23 Pain of sacroiliac joint 072813473 M53.3 conditno acute injection right si joint. hte right si joint is prepped and draped in a sterile ashion 1.5 cc of kenalog is mixed with 1.5 cc of lidocaine and the right si joint is injected from a posterior approach. Benign ess ential hypertension 0302792 I10 conditoin chroinc and at goal continue the norvasc my rx Hypertriglyceridemia 302 703516 E78.1 conditoin chronic and at goal continue the fish oil my rx Hypercholesterolemia 136 50183 E78.00 condition acute start low fat diet. Rheumatoid arthritis 698 37968 M06.9 conditoin chroinc and under control follow with dr hathaway Pain in both feet 636692 6304 1262383 M79.671 conditon chroinc and at goal [facility] Concerns Section Related Observation LastModified by Organization Detai ls LastModified Time None Recorded Concern Status LastModified by Organization Details LastModified Time None Recorded Advance Directives Directive None Recorded Payers Encounter Date Sequence Insurance Name Policy Number Policy Rivero Covered Member ID Rivero Member ID Guarantor Name 03/27/2023 1 [employer] (MEDICARE REPLACEMENT/ ADVANTAGE - PPO) [id number] Hailee Quiroz Rani [id number] Hailee Rani 04/03/2023 1 [employer] (MEDICARE REPLACEMENT/ ADVANTAGE - PPO) [id number] Hailee Quiroz Rani [id number] Hailee Rani 07/29/2023 1 [employer] (MEDICARE REPLACEMENT/ ADVANTAGE - PPO) [id number] Hailee Quiroz Rani [id number] Hailee Saravia 01/28/2024 1 [employer] (MEDICARE REPLACEMENT/ ADVANTAGE - PPO) [id number] Hailee Quiroz Rani [id number] Hailee Rani 07/06/2024 1 [employer] (MEDICARE REPLACEMENT/ ADVANTAGE - PPO) [id number] Hailee Quiroz Rani [id number] Hailee Saravia Notes Date Note Type Note Provider Name and Address Organization Details Recorded Time 03/27/2023 text/html states that she has been having cough and wheeze over the past week and she is getting worse. the ra is under control adn the bunions are painful. states taht she has been running a fever nad has body aches. dark urine Lexi Lasica, RN null, [place] [facility] 04/04/2023 16:16:45 04/03/2023 text/html states that she has a sinus infection the htn and the triglycerides are under conrol the ra is under control and the bunions are under control Rachid Zarate MD Attn: [address] [place], [address], [place] [facility] 04/03/2023 18:58:07 07/29/2023 text/html states that she is doing good an the htn is under control the triglycerides are under control nad the ra is stable the bunion is under control taking her meds as driected. colo is utd. Rachid Zarate MD Attn: [address] [place], [place], [address] [place] [address], [place] [facility] 07/29/2023 18:15:14 01/28/2024 text/html states that she is doing good and the htn si under contorl the ra is under control the triglycerides are under control hte bunion is still painful right si joint pain is worse Rachid Zarate MD Attn: [address] [place], [address], [place] [facility] 01/28/2024 13:46:41 07/06/2024 text/html staets that the right si joint is getting worse. hte htn is under control and hte triglyderides are under contrl hte ra is stable taking her meds as directed. colo is utd dr loan Zarate MD Attn: [address] [place], [address], [place] [facility] 07/06/2024 13:10:21 OBGyn Episode No OBEpisode recorded.
--- OUTSIDE RECORDS SUMMARY | 2024-08-25 13:25 | XMS_ITS | Referral Summary ---
Author Organization [facility] [address] Address [address] [place] [address] Phone Care Team Providers Care Automatic Profile Sander Operator Name Role Phone Sandra Eric MD Unavailable Rachid Zarate MD Primary Care Provider [phone] Allergies No known active allergies Medications cholecalciferol (VITAMIN D-3) 2000 unit capsule Take 2,000 Units by mouth daily Active vitamin B complex with C-folic acid (NEPHROCAP) 1 mg capsuleIndicati ons:Vitamin Deficiency Prevention Take 1 capsule by mouth daily Active aspirin 325 mg tablet Take 325 mg by mouth daily Active leflunomide (ARAVA) 20 mg tablet Take 1 tablet by mouth daily 11/21/2020 Active hydrOXYchloroQU INE (PLAQUENIL) 200 mg tablet Take 200 mg by mouth daily Active Active Problems Problem Noted Date Diagnosed Date Acute respiratory failure with hypoxia COVID-19 12/06/2020 Encounter for long-term (current) use of medicat ions 09/04/2016 Assessment & Plan (12/12/2017 12:23 PM CDT): Will continue to monitor w/ routine labs Assessment & Plan (09/10/2017 11:04 AM CDT): Will continue to monitor w/ routine labs Assessment & Plan (06/10/2017 10:39 AM CDT): Labs in 3 mo. F/u 3 mos, sooner if needed. Assessment & Plan (03/12/2017 11:26 AM PROPERTY MANAGEMENT COORDINATOR): Labs today. F/u 3 mos, sooner if needed. Assessment & Plan (12/12/2016 10:12 AM CDT): Labs today. F/u 3 mos, sooner if needed. Assessment & Plan (09/04/2016 2:38 PM CDT): Labs and vectra test today. F/u 3 mos, sooner if needed. Rheumatoid arthritis involvi ng both hands with negative rheumatoid factor 01/19/2015 Overview (07/06/2016): Rheumatoid arthritis involving both hands with negative rheumatoid factor Assessment & Plan (12/12/2017 12:23 PM CDT): Patient disease activity is low. Currently on HCQ and arava 10 mg/d. Reports minimal joint pain and AM stiffness. Lesions behind ears concerning for psoriasis. I suspect she is more of a seronegative spa vs. Ra. Especially given her joint involvement. Patient is to continue current regimen. Can consider increasing her arava or adding otezla in the future if necessary. Will check routine labs at next office visit. She recently had labs drawn at outside lab. We will request these results. I suspect some of her labs may be abnormal due to the recent URI she had Follow up in 3 mo, sooner if needed Assessment & Plan (09/10/2017 11:04 AM CDT): Patient disease activity is moderate on hcq and arava 10 mg. She reports 0/10 joint pain and minimal morning stiffness. T3s4 on exam. Recent ESR and CRP WNL. Vectra in 2017 was 37. Xrays in 03/2014 showed erosive changes more consistent w/ OA. Patient is to continue current regimen. Discussed repeating xrays. She reports that her insurance requires her to pay out of pocket for testing. Will hold off on this for now. Will check routine labs prior to next office visit. Recently had labs which were WNL. Will give her samples of pennsaid and send in rx. She reports this helps her joint pain. Follow up in 3 mo, sooner if needed Assessment & Plan (06/10/2017 10:59 AM CDT): Patient disease activity is low on hcq. U/s in 01/2017 showed mild disease and vectra score was 37 in August 2016. Ideally, would like her vectra to be below 35. Patient is to continue current regimen. Recently got blood work and was all WNL. Will check routine labs in 3 mo before her next appointment. Consider rechecking hand/wrist u/s and vectra sometime in the summer Follow up in 3 mo, sooner if needed Pt seen w/ Sara Dunlap PA-C Assessment & Plan (03/12/2017 11:40 AM PROPERTY MANAGEMENT COORDINATOR): Low disease activity with hcq daily and arava 10mg daily. Higher doses of arava caused loose stools and hair thinning. Labs today. Can hold arava for now if she wants to try to hold a medicine. Pt seen with Dr. Eric. F/u 3 mos, sooner if needed. Assessment & Plan (12/12/2016 10:26 AM CDT): Low disease activity with hcq daily and arava 10mg daily. Higher doses of arava caused loose stools and hair thinning. Labs today. U/s last month shows mild disease and vectra score is 37. Con't with current regimen. F/u 3 mos, sooner if needed. Assessment & Plan (09/04/2016 2:37 PM CDT): Low disease activity with hcq daily and arava 20mg daily. Labs today with vectra test today. Last vectra test was elevated but previous test was normal. CA screenings utd. Possible elevated vectra test could be due to cold a few days before last test. Has not been sick in the last few months, so will recheck today. U/s last month shows mild disease. Con't with current regimen. F/u 3 mos, sooner if needed. Drug indicated 04/14/2013 Overview (07/06/2016): LONG-TERM USE MEDS NEC Disorder of joint 07/02/2011 Overview (07/06/2016): ARTHROPATHY NOS-UNSPEC Osteoarthritis 11/22/2010 Overview (07/06/2016): OA Immunizations Immunization Administration Dates Next Due Tdap 12/17/2014 Social History Tobacco Use Types Packs/Day Years Used Date Smoking Tobacco: Never Smokeless Tobacco: Never Alcohol Use Standard Drinks/Week Comments Yes 0 (1 standard drink = 0.6 oz pur e alcohol) AUDIT-C Answer Date Recorded Q1: How often do you have a drink containing alc ohol? 2-4 times a month 01/06/2021 Q2: How many drinks containi ng alcohol do you have on a typical day when you are drinking? 1 or 2 01/06/2021 Q3: How often do you have si x or more drinks on one occasion? Never 01/06/2021 PHQ-2 Answer Date Recorded PHQ-2 Total Score (If total score is 3 or more points, staff should administer the PHQ-9) 0 01/06/2021 Comments No Sex and Gender Information Value Date Recorded Sex Assigned at Not on file Legal Sex Female 12:02 PM PROPERTY MANAGEMENT COORDINATOR Gender Identity Female 01/09/2021 7:43 AM CDT Sexual Orientation Not on file Last Filed Vital Signs Vital Sign Reading Time Taken Comments Blood Pressure 136/80 07/07/2021 10:01 AM CDT Pulse 95 07/07/2021 10:01 AM CDT Temperature 36.7 C (98 F) 07/07/2021 10:01 AM CDT Respiratory Rate 16 07/07/2021 10:01 AM CDT Oxygen Saturation 97% 07/07/2021 10:01 AM CDT Inhaled Oxygen Concentration - - Weight 63.5 kg (140 lb) 07/07/2021 10:01 AM CDT Height 160 cm (5' 3) 07/07/2021 10:01 AM CDT Body Mass Index 24.8 07/07/2021 10:01 AM CDT Plan of Treatment Not on file Insurance COMMERCIAL GENERIC [facility] Advance Directives For more information, please contact: [phone] * Full Code (Latest Code Status on File) Date Activated Date Inactivated Comments 12/06/2020 2:05 PM 12/15/2020 7:11 PM Care Teams Automatic Profile Sander Operator Relationship Specialty [place] [address] [address] PCP - General Family Medicine 12/22/20 [place] [address] [address] Rheumatology 12/13/16
--- OUTSIDE RECORDS SUMMARY | 2024-08-25 13:25 | XMS_ITS | Clinical Summary ---
Author Organization [facility] [address] Address [address] [place] [address] Phone Care Team Providers Care Casket Assembler Name Role Phone Sandra Eric MD Unavailable Rachid Zarate MD Primary Care Provider [phone] Allergies No known active allergies Medications cholecalciferol [...] needed. Assessment & Plan (03/12/2017 11:26 AM ENGINEERING EXECUTIVE): Labs today. F/u 3 mos, sooner if [...] PA-C Assessment & Plan (03/12/2017 11:40 AM ENGINEERING EXECUTIVE): Low disease activity with hcq daily and [...] Immunization Administration Dates Next Due Tdap 12/17/2014 Surgical History Surgery Date Site/Laterality Comments PARTIAL HYSTERECTOMY PARTIAL HYSTERECTOMY Medical History Medical History Date Comments Arthritis Family History Medical History Relation Name Comments No Known Problems Daughter Heart disease Mother Heart disease; Cancer Other Family history of Cancer, unknown; Asthma Sister No Known Problems Son Relation Name Status Comments Brother Daughter Alive Father Mother Other Sister Alive Son Alive Social History Tobacco Use Types Packs/Day Years [...] on file Legal Sex Female 12:02 PM ENGINEERING EXECUTIVE Gender Identity Female 01/09/2021 7:43 AM CDT Sexual Orientation Not on file Obstetrics History Last Filed Vital Signs Vital Sign Reading [...] Treatment Not on file Insurance COMMERCIAL GENERIC AETNA MEDICARE AETNA [facility] AETNA MEDICARE Advance Directives For more information, please contact: [phone] * Full Code (Latest Code Status on File) Date Activated Date Inactivated Comments 12/06/2020 2:05 PM 12/15/2020 7:11 PM Care Teams Casket Assembler Relationship Specialty [place] [id number] [facility] [address] [place] [address] PCP - General Family Medicine 12/22/20 [place] [address] [facility] [address] [place] [address] Rheumatology 12/13/16
--- OUTSIDE RECORDS SUMMARY | 2024-08-25 13:25 | XMS_ITS | Clinical Summary ---
Author Organization [facility] Address [address] [place] [address] Care Team Providers Care Store Standards Associate Name Role Phone Bruce Rosas MD Primary Care Provider [phone] Source Comments [facility],non-owned Affiliates and Associated Physician Practices is amultiple site organization consisting of ambulatory clinics and hospital sitesin [place], [place], [place] and [place]. This disclosure is being madepursuant to the Care Everywhere program and may not contain all information available regarding this patient. Last updated 17.[facility] [employer] Social History Tobacco Use Types Packs/Day Years Used Date Smoking Tobacco: Never Assessed Comments Unknown Sex and Gender Information Value Date Recorded Sex Assigned at Not on file Legal Sex Female 11:42 AM DESPATCH CLERK Gender Identity Not on file Sexual Orientation Not on file Plan of Treatment Health Maintenance Due Date Last Done Comments BONE DENSITY TESTING 1955 COLOGUARD (AGES 45-75) - COL ON CA SCREENING 1955 COLON MONITORING 1955 COLONOSCOPY - COLON CA SCREENING 1955 CT COLONOGRAPHY - COLON CA SCREENING 1955 Colorectal Cancer Screening 1955 FIT - COLON CA SCREENING 1955 FLEX SIG - COLON CA SCREENING 1955 LIPID TESTING 1955 MAMMOGRAM 1955 HEPATITIS C SCREENING 07/11/1973 DTAP/TDAP/TD VACCINES (1 - Tdap) 07/15/1974 PNEUMOCOCCAL VACCINE 50+ (1 of 1 - PCV) 07/15/2005 ZOSTER VACCINE (1 of 2) 07/15/2005 COVID-19 VACCINE ( - 2023-2 5 season) 2023 DEPRESSION SCREENING 04/01/2024 INFLUENZA VACCINE (Season Ended) 2024 Respiratory Syncytial Virus (RSV) Vaccine Pt: or over 60 yrs (1 - 1-dose 75+ series) 07/15/2030 HEPATITIS B VACCINE Aged Out No longe r eligible based on patient's age to complete this topic HIB VACCINE Aged Out No longer eligi ble based on patient's age to complete this topic HPV VACCINE Aged Out No longer eligi ble based on patient's age to complete this topic MENINGOCOCCAL (Group B) VACC INE SHARED DECISION-MAKING Aged Out No longer eligibl e based on patient's age to complete this topic MENINGOCOCCAL GROUPS A/C/Y/W VACCINE Aged Out No longer eligible b ased on patient's age to complete this topic Insurance [facility] Address: [facility] [id number] [place] [address] Care Teams Store Standards Associate Relationship Specialty Start Date End Date Bruce Rosas MD [address] [place] [address] PCP - General Family Medicine 03/03/14
== END 2024-08-25 13:23 | disposition home or self-care (01) ==
LOC: ANHIMG 13:22
PROVIDERS: PCP Nurse Practitioner Obstetrics & Gynecology; Visit Provider Nurse Practitioner Obstetrics & Gynecology
DX: Z78.0 Asymptomatic menopausal state (principal); M85.88 Other specified disorders of bone density and structure, other site
CPT/HCPCS: 77080

== ENCOUNTER 2024-10-01 15:11 | Outpatient (CLI) | payer MEDICARE, SELFPAY ==
--- NOTE | ~2024-10-01 | MM_ITS ---
EXAMINATION: MM screening debora BI w melissa HISTORY: Screening mammogram TECHNIQUE: Craniocaudal and mediolateral oblique 3-D tomosynthesis images were obtained and synthetic 2-D images were generated. CAD analysis was submitted and interpreted. COMPARISON: 02/24/2021 BREAST PARENCHYMAL COMPOSITION:Dense: The breasts are heterogeneously dense, which may obscure small masses. FINDINGS: There is asymmetry of the upper left breast on MLO view. Stable parenchymal appearance of t he right breast. No suspicious microcalcifications. IMPRESSION: Upper left breast asymmetry. Spot compression view and true lateral view, and possibly ultrasound, re commended for further evaluation.. BI-RADS Category 0: Incomplete: Needs additional imaging evaluation. Reviewed, dictated and finalized at location M. IMPRESSION: Upper left breast asymmetry. Spot compression view and true lateral view, and p ossibly ultrasound, recommended for further evaluation.. BI-RADS Category 0: Incomplete: Needs additional imaging evaluation.
== END 2024-10-01 15:12 | disposition home or self-care (01) ==
LOC: MICIMG 15:11
PROVIDERS: PCP Nurse Practitioner Obstetrics & Gynecology; Visit Provider Nurse Practitioner Obstetrics & Gynecology
DX: Z12.31 Encounter for screening mammogram for malignant neoplasm of breast (principal); R92.8 Other abnormal and inconclusive findings on diagnostic imaging of breast
CPT/HCPCS: 77063; 77067

== ENCOUNTER 2024-10-26 09:28 | Outpatient (CLI) | payer MEDICARE, SELFPAY ==
--- NOTE | ~2024-10-26 | MMUS_ITS ---
EXAMINATION: MM diagnostic debora LT w melissa, US breast LT complete HISTORY: Upper left breast asymmetry seen on prior examination. TECHNIQUE: Additional 3-D tomosynthesis images of the left breast were performed and synthetic 2-D im ages were generated. CAD analysis was submitted and interpreted. High resolution complete left breast ultrasound was performed. COMPARISON: Comparison to multiple prior studies sequentially, with oldest reviewed study dated 09/20. BREAST PARENCHYMAL COMPOSITION: Dense: The breasts are heterogeneously dense, which may obscure small masses FINDINGS: MAMMOGRAPHIC FINDINGS: Left breast asymmetry is persistent on medial lateral view, although less apparent with spot compress ion views. There are no suspicious calcifications or architectural distortion. ULTRASOUND: Complete US of all 4 quadrants of the left breast/s and retroareolar region was reviewed. At 11:00, 3 cm from the nipple there is an irregular shaped hypoechoic mass with irregular lateral margins. This mass measures 7 x 6 x 6 mm. No internal vascularity. Mixed posterior attenuation. No other masses ar e identified. IMPRESSION: 1. Irregular shape 7 mm left breast mass at 11:00, 3 cm from the nipple, likely corresponding to the area of mammographic concern. 2. Ultrasound-guided left breast biopsy recommended. BI-RADS category 4, suspicious findings. Reviewed, dictated and finalized at location B. IMPRESSION: 1. Irregular shape 7 mm left breast mass at 11:00, 3 cm from the nipple, likely corresponding to the area of mammographic concern. 2. Ultrasound-guided left breast biopsy recommended. BI-RADS category 4, suspicious findings.
== END 2024-10-26 09:29 | disposition home or self-care (01) ==
LOC: MICIMG 09:28
PROVIDERS: PCP Nurse Practitioner Obstetrics & Gynecology; Visit Provider Nurse Practitioner Obstetrics & Gynecology
DX: R92.8 Other abnormal and inconclusive findings on diagnostic imaging of breast (principal)
CPT/HCPCS: 76641; 77061; 77065; G0279

== ENCOUNTER 2024-11-02 07:26 | Outpatient (CLI) | payer MEDICARE, SELFPAY ==
--- NOTE | ~2024-11-02 | MMUS_ITS ---
PROCEDURE: US breast biopsy LT w image, MM post biopsy diagnostic LT CLINICAL HISTORY: 69-year-old female with irregular shaped left breast mass at 11:00 location present s for ultrasound-guided core needle biopsy procedure. COMPARISON: 10/26/2024 Following informed consent including risks, benefits, and possible complications, the patient was bro ught to the ultrasound suite. A time-out procedure was performed. A preliminary ultrasound of the le ft breast was performed, redemonstrating hypoechoic mass at 11:00, 3 cm from the nipple.. The patient was prepped and draped in the usual sterile fashion. 1% lidocaine was instilled into the subcutaneous tissues. 1% lidocaine with epinephrine was injected into the deep tissues just inferior to the lesion. Approximately 15cc lidocaine was administered. A small skin alton was made. Multiple co re samples were obtained with a 14-gauge multi pass biopsy needle. A post biopsy metal marker was long mando at the biopsy site. Postprocedural mammogram of the left breast in craniocaudal and mediolateral projections reveal the p ost biopsy metal marker in good position. The patient tolerated the procedure well and was without im mediate postprocedural complications. IMPRESSION: Successful ultrasound guided biopsy of left breast mass at 11:00. A post biopsy metal mar ker was placed at the biopsy site, which is seen on postprocedural mammogram. The patient tolerated the procedure well without immediate postprocedure complications. The patient w as given postprocedural instructions and sent home in stable condition. Reviewed, dictated and finalized at location B. IMPRESSION: Successful ultrasound guided biopsy of left breast mass at 11:00. A post biopsy metal marker was placed at the biopsy site, which is seen on postp rocedural mammogram. The patient tolerated the procedure well without immediate postprocedure compli cations. The patient was given postprocedural instructions and sent home in sta ble condition.
--- OUTSIDE RECORDS SUMMARY | 2024-11-02 07:34 | XMS_ITS | Referral Summary ---
Author Organization [facility] [address] Address [address] [place] [address] Phone Care Team Providers Care Honey Blender Name Role Phone Sandra Eric MD Unavailable Rachid Zarate MD Primary Care Provider [phone] Allergies No known active allergies Medications cholecalciferol [...] needed. Assessment & Plan (03/12/2017 11:26 AM WATER RESOURCE ENGINEER): Labs today. F/u 3 mos, sooner if [...] PA-C Assessment & Plan (03/12/2017 11:40 AM WATER RESOURCE ENGINEER): Low disease activity with hcq daily and [...] on file Legal Sex Female 12:02 PM WATER RESOURCE ENGINEER Gender Identity Female 01/09/2021 7:43 AM CDT [...] on file Insurance COMMERCIAL GENERIC AET MEDICARE [facility] AETNA MEDICARE Advance Directives For more information, please contact: [phone] * Full Code (Latest Code Status on File) Date Activated Date Inactivated Comments 12/06/2020 2:05 PM 12/15/2020 7:11 PM Care Teams Honey Blender Relationship Specialty [place] [id number] [address] PCP - General Family Medicine 12/22/20 [place] [id number] [address] Rheumatology 12/13/16
--- OUTSIDE RECORDS SUMMARY | 2024-11-02 07:34 | XMS_ITS | Clinical Summary ---
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 F/u 3 mos, sooner if [...] Assessment & Plan (03/12/2017 11:40 AM WATER SYSTEMS DESIGNER): Low disease activity with hcq daily and [...] file Legal Sex Female 12:02 PM WATER SYSTEMS DESIGNER Gender Identity Female 01/09/2021 7:43 AM CDT [...] file Insurance COMMERCIAL GENERIC AETNA MEDICARE AETNA [facility] AETNA MEDICARE Advance Directives For more information, please contact: [phone] * Full Code (Latest Code Status on File) Date Activated Date Inactivated Comments 12/06/2020 2:05 PM 12/15/2020 7:11 PM Care Teams Bread Panner Relationship Specialty [place] [address] [facility] [address] [place] [address] PCP - General Family Medicine 12/22/20 [place] [address] [facility] [address] [place] [address] Rheumatology 12/13/16
--- OUTSIDE RECORDS SUMMARY | 2024-11-02 07:34 | XMS_ITS | Clinical Summary ---
Author Organization [facility] Address [address] [place] [address] Care Team Providers Care Physical Geographer Name Role Phone Rachid Zarate MD Primary Care Provider [phone] Allergies No known active allergies Medications hydroxychloroqu ine (PLAQUENIL) 200 MG tablet Take 1 tablet (200 mg total) by mouth daily. Active Cholecalciferol 50 MCG (2000 UT) Cap Take 2,000 Units by mouth daily. Active leflunomide (ARAVA) 20 MG tablet Take 1 tablet (20 mg total) by mouth daily. Active B complex-C Cap capsule Take 1 capsule by mouth daily. Active amLODIPine (NORVASC) 5 MG tablet Take 1 tablet by mouth once daily 90 tablet 11/26/2023 Active Active Problems Problem Noted Date Diagnosed Date Shortness of breath 01/01/2023 Carbon dioxide blood increased 01/01/2023 Dyspnea on exertion 10/30/2022 Bunion 10/30/2022 Acute respiratory failure with hypoxia ([facility]) 12/10/2020 Rheumatoid arthritis involvi ng both hands with negative rheumatoid factor ([facility]) 01/19/2015 Overview (01/01/2023): Rheumatoid arthritis involving both hands with negative rheumatoid factor Last Assessment & Plan: Patient disease activity is low. Currently on [...] up in 3 mo, sooner if needed Disorder of joint 07/02/2011 Overview (01/01/2023): ARTHROPATHY NOS- UNSPEC Osteoarthrosis 11/22/2010 Overview (01/01/2023): OA Resolved Problems Problem Noted Date Diagnosed Date Resolved Date Pain in both feet 10/30/2022 03/06/2023 COVID-19 12/06/2020 03/06/2023 Encounter for long-term (cur rent) use of medications 09/04/2016 03/06/2023 Overview (01/01/2023): Last Assessment & Plan: Will continue to monitor w/ routine labs Family History Medical History Relation Comments Lung Cancer Brother Heart Mother Relation Status Comments Brother Father Mother Sister Alive Social History Tobacco Use Types Packs/Day Years Used Date Smoking Tobacco: Never Smokeless Tobacco: Never Tobacco Cessation:Counseling Given: Not Answered Comments Unknown Sex and Gender Information Value Date Recorded Sex Assigned at Not on file Legal Sex Female 7:19 PM CDT Gender Identity Not on file Sexual Orientation Not on file Last Filed Vital Signs Vital Sign Reading Time Taken Comments Blood Pressure 130/78 05/09/2023 11:13 AM DRAFTER 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 SURVEY Pulse 78 05/09/2023 11:13 AM DRAFTER DIRECTIONAL SURVEY Temperature - - Respiratory Rate - - Oxygen Saturation 98% 05/09/2023 11:13 AM DRAFTER DIRECTIONAL SURVEY Inhaled Oxygen Concentration - - Weight 63.5 kg (140 lb) 05/09/2023 11:13 AM DRAFTER DIRECTIONAL SURVEY Height 160 cm (5' 3) 05/09/2023 11:13 AM DRAFTER DIRECTIONAL SURVEY Body Mass Index 24.8 05/09/2023 11:13 AM DRAFTER DIRECTIONAL SURVEY Plan of Treatment Health Maintenance Due Date Last Done Comments Colorectal Cancer Screening Colonoscopy (10 Years) 1955 Hepatitis C 07/15/1973 Mammogram Screening 1995 Pneumococcal Vaccine: 50+ Ye ars (1 of 1 - PCV) 07/15/2005 Zoster Vaccines (1 of 2) 07/15/2005 Annual Medicare Wellness Visit 07/15/2020 Dexa Scan (General) 07/15/2020 COVID-19 Vaccine (1 - 2023-2 5 season) 2023 DTaP, Tdap and Td Vaccines ( 2 - Td or Tdap) 12/17/2024 12/17/2014 RSV Immunization or 60+ Years (1 - 1-dose 75+ series) 07/15/2030 Meningococcal B Vaccine Aged Out No l onger eligible based on patient's age to complete this topic Meningococcal Vaccine Aged Out No toya guillermo eligible based on patient's age to complete this topic RSV Immunizations Under 20 Months Aged Out No longer eligible based on patient's age to complete this topic Insurance AETNA Care Teams Physical Geographer Relationship Specialty Start Date End Date Rachid Zarate MD PCP - General FAMILY PRACTICE 11/13/22
--- OUTSIDE RECORDS SUMMARY | 2024-11-02 07:34 | XMS_ITS | Clinical Summary ---
Author Organization [facility] Address [address] [place] [address] Care Team Providers Care Inspector Aligning Name Role Phone Bruce Rosas MD Primary Care Provider [phone] Source Comments [facility],non-owned Affiliates and Associated Physician Practices is amultiple site organization consisting of ambulatory clinics and hospital sitesin [place], [place], [place] and [place]. This disclosure is being madepursuant to the Care Everywhere program and may not contain all information available regarding this patient. 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
--- OUTSIDE RECORDS SUMMARY | 2024-11-02 07:34 | XMS_ITS | Clinical Summary ---
Author Organization [facility] Address [address] 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
--- NOTE | 2024-11-02 08:44 | S_PTH ---
PATIENT: Hailee Morgan LOC: [facility] U#:[id number] AGE/SX: 69/F ROOM: RE11/02/[address]: Oly Madera MD : 1955 BED: DIS: 11/02/2024 SPEC #: [id number] RECD: 11/02/24 10:37 STATUS: JERICHO REStanislaw #: [id number] VIC: 11/02/24 08:[address]: Oly Madera DEPT: [facility] RECD BY: Luzmaria Marcum ENTERED: 11/02/24 10:37 SP TYPE: Surgical OTHR DR: Carmen Davies, CIERA Tissues: A - Breast Biopsy Procedures: Hematoxylin and Eosin Stain Gross and Microscopic Level 4
== END 2024-11-02 07:27 | disposition home or self-care (01) ==
LOC: ANHIMG 07:31
PROVIDERS: PCP Nurse Practitioner Obstetrics & Gynecology; Visit Provider Surgery
DX: N63.22 Unspecified lump in the left breast, upper inner quadrant (principal); R92.8 Other abnormal and inconclusive findings on diagnostic imaging of breast
CPT/HCPCS: 19083; 77065; 88305; A4648